=== PATIENT | male | born 1970 | race Caucasian/White ===

== ENCOUNTER 2020-05-24 19:06 | Emergency (ER) | payer BC ==
[~2020-05-24] VITALS: Ht 180.3 cm; Wt 104.3 kg
--- NOTE | 2020-05-24 19:46 | NUR ---
NURSING [employer] CALLED FOR MEDICATION DUE TO UNAVAILABLE MEDICATION IN ER.
[2020-05-24] MEDS ORDERED: LOSARTAN POTASSIUM 25 MG TABLET ONE (19:50)
[2020-05-24] MEDS ORDERED: AMLODIPINE BESYLATE 5 MG TABLET ONE (19:59)
[2020-05-24] MEDS ORDERED: AMLODIPINE BESYLATE 5 MG TABLET PO ONE (20:00)
[2020-05-24] MEDS ORDERED: LISINOPRIL (20MG) 20 MG TABLET PO SCH (20:00)
[2020-05-24] MEDS ORDERED: LOSARTAN POTASSIUM 25 MG TABLET PO ONE (20:00)
[2020-05-24] MEDS ORDERED: LOSARTAN/HCTZ 50-12.5MG/ 1 EA TABLET PO ONE (20:00)
[2020-05-24 20:02] VITALS: BP 216/136
--- NOTE | 2020-05-24 20:22 | NUR ---
Prescription provided and explained to the patient.
--- NOTE | 2020-05-24 20:22 | NUR ---
Patient discharged to home in stable condition. Written and verbal after care instructions given. Patient verbalizes understanding of instruction.
== END 2020-05-24 20:23 | disposition home or self-care (01) ==
LOC: ER 19:06
DX: I10 Essential (primary) hypertension (principal)